=== PATIENT | female | born 1965 | race African-American/Black ===

== ENCOUNTER 2017-12-14 13:07 | Emergency (ER) | payer OTHER ==
[~2017-12-14] VITALS: Ht 149.9 cm; Wt 67.6 kg
[2017-12-14 14:47] LABS: HEMATOCRIT 32.2 % (36.0-46.0); MCH 27.5 PG (29.0-34.0); MCHC 31.1 G/DL (30.0-36.0); MCV 88.5 FL (83-99); PLATELET COUNT 152 K/uL (156-360); RBC DIS.WIDTH-CV 15.7 % (11.8-14.6); RBC DIS.WIDTH-SD 50.9 % (39-53); RED BLOOD COUNT 3.64 M/uL (3.80-5.20); WHITE BLOOD COUNT 3.4 K/uL (4.1-10.2)
[2017-12-14 14:58] LABS: ALBUMIN 3.9 g/dL (3.2-4.8); CHLORIDE 108 mEq/L (99-109); POTASSIUM 3.4 mEq/L (3.7-5.4); SODIUM 142 mEq/L (136-147)
[2017-12-14 15:01] LABS: GLUCOSE 73 mg/dL (70-99); TOTAL PROTEIN 6.4 g/dL (6.4-8.3)
[2017-12-14 15:03] LABS: TOTAL BILIRUBIN 0.4 mg/dL (0.0-1.0)
[2017-12-14 15:04] LABS: ALKALINE PHOSPHATASE 77 IU/L (3-129); CREATININE 0.8 mg/dL (0.6-1.3)
[2017-12-14 15:05] LABS: UREA NITROGEN (BUN) 8 mg/dL (9-23)
[2017-12-14 15:06] LABS: AST (GOT) 15 IU/L (2-34)
[2017-12-14 15:07] LABS: ALT (GPT) 13 IU/L (3-49)
[2017-12-14 15:08] LABS: LIPASE 8 U/L (1.0-51.0)
[2017-12-14 15:11] LABS: GFR ESTIMATE (CALCULATED) > 59 mL/min/
[2017-12-14 15:36] LABS: ABS NEUTROPHIL COUNT 0.7; ANISOCYTOSIS 1+; EOSINOPHIL ABS CT 0; EOSINOPHILS 0.9 % (0-5.0); HYPOCHROMASIA 1+; LYMPHOCYTES 45.8 % (15.0-45.0); MACROCYTES 1+; MICROCYTOSIS 1+; MONOCYTES 4.7 % (0-9.0); SEG.NEUTROPHILS 19.6 % (46.0-76.0); SMUDGE CELLS 20.6
[2017-12-14 16:30] LABS: APPEARANCE CLEAR ((CLEAR)); BILIRUBIN NEGATIVE; BLOOD NEGATIVE; COLOR YELLOW ((YELLOW)); GLUCOSE (STRIP) NEGATIVE; KETONES NEGATIVE; LEUKOCYTES NEGATIVE; NITRITE NEGATIVE; PROTEIN (STRIP) NEGATIVE; SPECIFIC GRAVITY 1.019 (1.000-1.030); UCUL ADDED? NO
[2017-12-14 18:33] VITALS: BP 147/75
== END 2017-12-14 18:33 | disposition home or self-care (01) ==
LOC: EME 13:07
PROVIDERS: Emergency Medicine
DX: R10.9 Unspecified abdominal pain (principal); R11.2 Nausea with vomiting, unspecified; Z98.84 Bariatric surgery status; Z86.73 Personal history of transient ischemic attack (TIA), and cerebral infarction without residual deficits; J45.909 Unspecified asthma, uncomplicated; I10 Essential (primary) hypertension; Z90.710 Acquired absence of both cervix and uterus; M79.7 Fibromyalgia; Z88.5 Allergy status to narcotic agent; Z88.0 Allergy status to penicillin; Z88.6 Allergy status to analgesic agent
CPT/HCPCS: 74177; 80053; 81003; 83605; 83690; 85025; 93005; 99281; 99284; J0500; J2405; J7030

== ENCOUNTER 2018-01-23 08:47 | Emergency (ER) | payer OTHER ==
[~2018-01-23] VITALS: Ht 149.9 cm; Wt 68.9 kg
[2018-01-23 09:54] LABS: SOURCE SWAB
[2018-01-23 09:59] LABS: APPEARANCE CLEAR ((CLEAR)); BILIRUBIN NEGATIVE; BLOOD NEGATIVE; COLOR YELLOW ((YELLOW)); GLUCOSE (STRIP) NEGATIVE; KETONES NEGATIVE; LEUKOCYTES NEGATIVE; NITRITE NEGATIVE; PROTEIN (STRIP) NEGATIVE; SPECIFIC GRAVITY 1.023 (1.000-1.030); UCUL ADDED? NO; UROBILINOGEN 0.2 MG/DL (0.2-1.0)
[2018-01-23 10:03] LABS: BASOPHIL (%) 0.3 % (0-1); EOSINOPHIL (%) 0.9 % (0-5); HEMATOCRIT 37.3 % (36.0-46.0); HEMOGLOBIN 11.6 G/DL (11.9-15.5); LYMPHOCYTE (%) 54.2 % (15-42); LYMPHOCYTE COUNT 1.8 K/uL (1.0-2.8); MCH 27.8 PG (29.0-34.0); MCHC 31.1 G/DL (30.0-36.0); MCV 89.2 FL (83-99); MONOCYTE (%) 6.9 % (3-12); MONOCYTE COUNT 0.2 K/uL (0-0.8); NEUTROPHIL (%) 37.7 % (45-76); NEUTROPHIL COUNT 1.3 K/uL (1.8-6.4); PLATELET COUNT 138 K/uL (156-360); RBC DIS.WIDTH-CV 15.3 % (11.8-14.6); RED BLOOD COUNT 4.18 M/uL (3.80-5.20); WHITE BLOOD COUNT 3.3 K/uL (4.1-10.2)
[2018-01-23 10:13] LABS: ALBUMIN 4.4 g/dL (3.2-4.8); CHLORIDE 109 mEq/L (99-109); POTASSIUM 3.4 mEq/L (3.7-5.4); SODIUM 144 mEq/L (136-147)
[2018-01-23 10:16] LABS: GLUCOSE 62 mg/dL (70-99); TOTAL PROTEIN 7.4 g/dL (6.4-8.3)
[2018-01-23 10:18] LABS: TOTAL BILIRUBIN 0.5 mg/dL (0.0-1.0)
[2018-01-23 10:19] LABS: ALKALINE PHOSPHATASE 105 IU/L (3-129); SERUM ETHYL ALCOHOL < 10 mg/dL
[2018-01-23 10:20] LABS: CREATININE 0.8 mg/dL (0.6-1.3); GFR ESTIMATE (CALCULATED) > 59 mL/min/
[2018-01-23 10:21] LABS: AST (GOT) 18 IU/L (2-34); UREA NITROGEN (BUN) 14 mg/dL (9-23)
[2018-01-23 10:22] LABS: ALT (GPT) 20 IU/L (3-49)
[2018-01-23] MEDS ORDERED: ZOFRAN4 MG PO (13:12)
[2018-01-23 13:26] VITALS: BP 161/95
[2018-01-23 13:34] LABS: AMPHETAMINE NEGATIVE (500 ng/mL); BARBITURATES NEGATIVE (200 ng/mL); BENZODIAZEPINES NEGATIVE (150 ng/mL); BUPRENORPHINE NEGATIVE (10 ng/mL); COCAINE NEGATIVE (150 ng/mL); METHADONE NEGATIVE (200 ng/mL); METHAMPHETAMINE NEGATIVE (500 ng/mL); OPIATES (MORPHINE) NEGATIVE (100 ng/mL); OXYCODONE NEGATIVE (100 ng/mL); PHENCYCLIDINE NEGATIVE (25 ng/mL); PROPOXYPHENE NEGATIVE (300 ng/mL); THC CANNABINOIDS NEGATIVE (50 ng/mL); TRICYCLIC ANTIDEPRESSANTS NEGATIVE (300 ng/mL)
[2018-01-23 13:59] LABS: TREPONEMA ANTIBODY POSITIVE (NEGATIVE)
[2018-01-24 18:13] LABS: RPR SCREEN Nonreactive (Nonreactive)
[2018-01-24 19:49] LABS: TREPONEMA PALLIDUM PART AGGL Nonreactive (Nonreactive)
== END 2018-01-23 13:32 | disposition home or self-care (01) ==
LOC: EME 08:47
PROVIDERS: Emergency Medicine
DX: T76.21XA Adult sexual abuse, suspected, initial encounter (principal); R10.30 Lower abdominal pain, unspecified; E16.2 Hypoglycemia, unspecified; Z11.3 Encounter for screening for infections with a predominantly sexual mode of transmission; Z90.710 Acquired absence of both cervix and uterus; Z98.84 Bariatric surgery status; Z86.73 Personal history of transient ischemic attack (TIA), and cerebral infarction without residual deficits
CPT/HCPCS: 80053; 81003; 82948; 85025; 86592 90; 86780; 86780 90; 87491; 87591; 99281; 99285; G0480; J0696

== ENCOUNTER 2018-04-06 09:10 | Emergency (ER) | payer OTHER ==
[~2018-04-06] VITALS: Ht 149.9 cm; Wt 66.5 kg
[~2018-04-06 09:10] MED LIST: ZOFRAN4 MG PO
[2018-04-06 11:54] LABS: HEMOGLOBIN 12.2 G/DL (11.9-15.5); MCHC 31.3 G/DL (30.0-36.0); MCV 89.4 FL (83-99); RBC DIS.WIDTH-CV 14.6 % (11.8-14.6); RBC DIS.WIDTH-SD 48.3 % (39-53); RED BLOOD COUNT 4.36 M/uL (3.80-5.20); WHITE BLOOD COUNT 4.6 K/uL (4.1-10.2)
[2018-04-06 12:45] LABS: PLAT.SUFFICIENCY DECREASED; PLATELET CLUMPS PRESENT - PLATELET COUNTS APPEARS DECREASED; PLATELET COUNT UNABLE TO REPORT K/uL (156-360)
[2018-04-06 12:59] LABS: CHLORIDE 109 mEq/L (99-109); POTASSIUM 3.7 mEq/L (3.7-5.4); SODIUM 145 mEq/L (136-147)
[2018-04-06 13:00] LABS: GLUCOSE 87 mg/dL (70-99)
[2018-04-06 13:04] LABS: CREATININE 0.7 mg/dL (0.6-1.3); GFR ESTIMATE (CALCULATED) > 59 mL/min/
[2018-04-06 13:05] LABS: UREA NITROGEN (BUN) 10 mg/dL (9-23)
[2018-04-06 13:14] LABS: QUANTITATIVE HCG 6.1 MIU/ML
[2018-04-06] MEDS ORDERED: NAPROSYN500 MG PO (14:49)
[2018-04-06] MEDS ORDERED: FLEXERIL10 MG PO (14:49)
[2018-04-06 15:08] VITALS: BP 138/76
== END 2018-04-06 15:09 | disposition home or self-care (01) ==
LOC: EME 09:10
PROVIDERS: Physician Assistant
DX: S43.402A Unspecified sprain of left shoulder joint, initial encounter (principal); S63.512A Sprain of carpal joint of left wrist, initial encounter; S60.212A Contusion of left wrist, initial encounter; S10.93XA Contusion of unspecified part of neck, initial encounter; E04.2 Nontoxic multinodular goiter; Y04.8XXA Assault by other bodily force, initial encounter; Z88.5 Allergy status to narcotic agent; Z88.0 Allergy status to penicillin
CPT/HCPCS: 70498; 71046; 73060; 73090; 73110; 80048; 84702; 85027; 99281; 99284

== ENCOUNTER 2018-04-24 11:49 | Observation (INO) | payer OTHER ==
[~2018-04-24] VITALS: Ht 149.9 cm; Wt 66.6 kg
[~2018-04-24 11:49] MED LIST changes: +FLEXERIL10 MG PO; +NAPROSYN500 MG PO
[2018-04-24 12:36] LABS: HEMATOCRIT 33.6 % (36.0-46.0); HEMOGLOBIN 10.7 G/DL (11.9-15.5); MCH 28.5 PG (29.0-34.0); MCHC 31.8 G/DL (30.0-36.0); MCV 89.4 FL (83-99); RBC DIS.WIDTH-CV 15.1 % (11.8-14.6); RBC DIS.WIDTH-SD 49.1 % (39-53); RED BLOOD COUNT 3.76 M/uL (3.80-5.20); WHITE BLOOD COUNT 2.9 K/uL (4.1-10.2)
[2018-04-24 13:07] LABS: TROP-I INTERPRETATION NEGATIVE; TROPONIN-I < 0.01 ng/mL (0.0-0.30)
[2018-04-24 13:10] LABS: CHLORIDE 111 MEQ/L (99-109); CREATININE 0.8 MG/DL (0.6-1.3); GFR ESTIMATE (CALCULATED) > 59 mL/min/; GLUCOSE 78 mg/dL (70-99); POTASSIUM 4.2 MEQ/L (3.7-5.4); SODIUM 144 MEQ/L (136-147); UREA NITROGEN (BUN) 14 mg/dL (9-23)
[2018-04-24 14:09] LABS: PLATELET COUNT 200 K/uL (156-360)
[2018-04-24] MEDS ORDERED: FLEXERIL10 MG PO (15:43)
[2018-04-24] MEDS ORDERED: ZOFRAN4 MG PO (15:44)
[2018-04-24] MEDS ORDERED: RELAFEN500 M1 PO (15:45)
[2018-04-24] MEDS ORDERED: LOPRESSOR50 MG PO (15:45)
[2018-04-24] MEDS ORDERED: CYANOCOBAL1000 MCG/2 IM (15:45)
[2018-04-24] MEDS ORDERED: ZOLPIDEM TART12.5 MG PO (15:46)
[2018-04-24] MEDS ORDERED: LYRICA100 MG PO (15:46)
[2018-04-24] MEDS ORDERED: VENTOLIN HFA18 GM IH (15:46)
[2018-04-24] MEDS ORDERED: TIZANIDINE HCL4 MG PO (15:47)
[2018-04-24] MEDS ORDERED: CLONIDINE HCL0.1 MG PO (15:48)
[2018-04-24] MEDS ORDERED: CREON DR 12,001 EAC1 PO (15:48)
[2018-04-24] MEDS ORDERED: PANTOPRAZOLE SO40 MG PO (15:48)
[2018-04-24] MEDS ORDERED: BENADRYL25 MG PO (15:49)
[2018-04-24] MEDS ORDERED: XARELTO20 MG PO (15:49)
[2018-04-24] MEDS ORDERED: GAS RELIEF 8080 MG PO (15:50)
[2018-04-24 16:09] LABS: HEMATOCRIT 33.5 % (36.0-46.0); HEMOGLOBIN 10.5 G/DL (11.9-15.5); MCH 27.8 PG (29.0-34.0); MCHC 31.3 G/DL (30.0-36.0); MCV 88.6 FL (83-99); PLATELET COUNT 190 K/uL (156-360); RBC DIS.WIDTH-SD 48.6 % (39-53); RED BLOOD COUNT 3.78 M/uL (3.80-5.20); WHITE BLOOD COUNT 4.4 K/uL (4.1-10.2)
[2018-04-24 16:22] LABS: D-DIMER ELISA < 150.00 ng/mLDDU (<230)
[2018-04-24 16:28] LABS: TROP-I INTERPRETATION NEGATIVE; TROPONIN-I 0.02 ng/mL (0.0-0.30)
[2018-04-24 16:32] VITALS: BP 165/85
[2018-04-24 16:57] LABS: FOLIC ACID (FOLATE) 5.3 NG/ML (5.0-22.0)
[2018-04-24 19:11] LABS: TROP-I INTERPRETATION NEGATIVE; TROPONIN-I < 0.01 ng/mL (0.0-0.30)
[2018-04-24 20:00] VITALS: BP 142/85
[2018-04-25] VITALS: BP 112/67
[2018-04-25 01:14] LABS: TROP-I INTERPRETATION NEGATIVE; TROPONIN-I 0.01 ng/mL (0.0-0.30)
[2018-04-25 04:00] VITALS: BP 126/77
[2018-04-25 05:34] LABS: HEMOGLOBIN 9.7 G/DL (11.9-15.5); MCH 27.9 PG (29.0-34.0); MCHC 31.3 G/DL (30.0-36.0); MCV 89.1 FL (83-99); PLATELET COUNT 148 K/uL (156-360); RBC DIS.WIDTH-CV 15.1 % (11.8-14.6); RBC DIS.WIDTH-SD 49.3 % (39-53); RED BLOOD COUNT 3.48 M/uL (3.80-5.20); WHITE BLOOD COUNT 3.2 K/uL (4.1-10.2)
[2018-04-25 06:04] LABS: CHLORIDE 109 MEQ/L (99-109); CREATININE 0.6 MG/DL (0.6-1.3); GFR ESTIMATE (CALCULATED) > 59 mL/min/; GLUCOSE 70 mg/dL (70-99); POTASSIUM 3.5 MEQ/L (3.7-5.4); SODIUM 142 MEQ/L (136-147); UREA NITROGEN (BUN) 13 mg/dL (9-23)
[2018-04-25 08:40] VITALS: BP 134/76
[2018-04-25 09:56] LABS: ABS NEUTROPHIL COUNT 1.5; ANISOCYTOSIS 1+; ATYPICAL LYMPHOCYTE 0.9 %; EOSINOPHIL ABS CT 0.1; EOSINOPHILS 1.8 % (0-5.0); LYMPHOCYTES 56.8 % (15.0-45.0); MONOCYTES 5.4 % (0-9.0); OVALOCYTES 1+; PLAT.SUFFICIENCY ADEQUATE; SEG.NEUTROPHILS 35.1 % (46.0-76.0)
[2018-04-25] MEDS ORDERED: K-DUR20 MEQ PO (10:58)
[2018-04-25] MEDS ORDERED: ZOLPIDEM TARTRAT5 MG PO (10:58)
[2018-04-25] MEDS ORDERED: TRAMADOL HCL50 MG PO (10:58)
[2018-04-25 11:28] VITALS: BP 132/89
[2018-04-25] MEDS ORDERED: XARELTO20 MG PO (14:05)
== END 2018-04-25 14:19 | disposition home or self-care (01) ==
LOC: EME 11:49 → EDOF 14:58 → ENRESERV 15:06 → 4SOUTH 16:25 → ENPENDDIS 04-25 → 4SOUTH 04-25 14:19
PROVIDERS: Physician Assistant; Physician Assistant Medical
DX: R07.2 Precordial pain (principal); M79.7 Fibromyalgia; D61.818 Other pancytopenia; I10 Essential (primary) hypertension; J45.909 Unspecified asthma, uncomplicated; E56.9 Vitamin deficiency, unspecified; Z98.84 Bariatric surgery status; Z86.711 Personal history of pulmonary embolism; Z86.718 Personal history of other venous thrombosis and embolism; Z91.14 Patient's other noncompliance with medication regimen; Z88.0 Allergy status to penicillin; E66.01 Morbid (severe) obesity due to excess calories; Z68.29 Body mass index [BMI] 29.0-29.9, adult
CPT/HCPCS: 71046; 80048; 82607; 82746; 84484; 85007; 85025; 85027; 85060; 85379; 86038; 86147 90; 93005; 99281; 99284; G0378

== ENCOUNTER 2018-05-06 13:38 | Inpatient (IN) | payer OTHER ==
[~2018-05-06] VITALS: Ht 149.9 cm; Wt 63.1 kg
[~2018-05-06 13:38] MED LIST changes: +BENADRYL25 MG PO; +CLONIDINE HCL0.1 MG PO; +CREON DR 12,001 EAC1 PO; +CYANOCOBAL1000 MCG/2 IM; +GAS RELIEF 8080 MG PO; +K-DUR20 MEQ PO; +LOPRESSOR50 MG PO; +LYRICA100 MG PO; +PANTOPRAZOLE SO40 MG PO; +RELAFEN500 M1 PO; +TIZANIDINE HCL4 MG PO; +TRAMADOL HCL50 MG PO; +VENTOLIN HFA18 GM IH; +XARELTO20 MG PO; +ZOLPIDEM TART12.5 MG PO; +ZOLPIDEM TARTRAT5 MG PO
[2018-05-06 14:56] LABS: BASOPHIL (%) 0.3 % (0-1); EOSINOPHIL (%) 1.2 % (0-5); HEMATOCRIT 32.4 % (36.0-46.0); HEMOGLOBIN 10.1 G/DL (11.9-15.5); IMMATURE GRANULOCYTE (%) 0.3 % (0.0-0.7); LYMPHOCYTE (%) 51.9 % (15-42); LYMPHOCYTE COUNT 1.8 K/uL (1.0-2.8); MCH 28.1 PG (29.0-34.0); MCHC 31.2 G/DL (30.0-36.0); MONOCYTE (%) 6.7 % (3-12); MONOCYTE COUNT 0.2 K/uL (0-0.8); NEUTROPHIL (%) 39.6 % (45-76); NEUTROPHIL COUNT 1.4 K/uL (1.8-6.4); PLATELET COUNT 142 K/uL (156-360); RBC DIS.WIDTH-CV 14.9 % (11.8-14.6); RBC DIS.WIDTH-SD 49.6 % (39-53); WHITE BLOOD COUNT 3.5 K/uL (4.1-10.2)
[2018-05-06 15:04] LABS: ALBUMIN 3.9 g/dL (3.2-4.8)
[2018-05-06 15:05] LABS: CHLORIDE 110 mEq/L (99-109); SODIUM 143 mEq/L (136-147)
[2018-05-06 15:07] LABS: GLUCOSE 88 mg/dL (70-99); TOTAL PROTEIN 6.6 g/dL (6.4-8.3)
[2018-05-06 15:09] LABS: TOTAL BILIRUBIN 0.4 mg/dL (0.0-1.0)
[2018-05-06 15:10] LABS: ALKALINE PHOSPHATASE 93 IU/L (3-129)
[2018-05-06 15:11] LABS: CREATININE 0.8 mg/dL (0.6-1.3); GFR ESTIMATE (CALCULATED) > 59 mL/min/
[2018-05-06 15:12] LABS: AST (GOT) 16 IU/L (2-34); ERTH.SED.RATE 26 MM/HR (0-30); UREA NITROGEN (BUN) 12 mg/dL (9-23)
[2018-05-06 15:14] LABS: ALT (GPT) 14 IU/L (3-49)
[2018-05-06 15:16] LABS: TROP-I INTERPRETATION NEGATIVE; TROPONIN-I < 0.01 ng/mL (0.0-0.30)
[2018-05-06] MEDS ORDERED: K-DUR20 MEQ PO (19:31)
[2018-05-06] MEDS ORDERED: RELAFEN500 M1 PO (19:32)
[2018-05-06] MEDS ORDERED: AMBIEN5 MG PO (19:32)
[2018-05-06] MEDS ORDERED: CLARITIN,ALAVAR10 MG PO (19:33)
[2018-05-06 21:36] VITALS: BP 115/71
[2018-05-06 23:46] VITALS: BP 111/71
[2018-05-07 04:08] VITALS: BP 118/76
[2018-05-07 06:59] LABS: BASOPHIL (%) 0.3 % (0-1); EOSINOPHIL (%) 1.6 % (0-5); EOSINOPHIL COUNT 0.1 K/uL (0-0.3); HEMATOCRIT 30.6 % (36.0-46.0); HEMOGLOBIN 9.2 G/DL (11.9-15.5); LYMPHOCYTE (%) 69.3 % (15-42); LYMPHOCYTE COUNT 2.1 K/uL (1.0-2.8); MCH 27.3 PG (29.0-34.0); MCHC 30.1 G/DL (30.0-36.0); MCV 90.8 FL (83-99); MONOCYTE COUNT 0.3 K/uL (0-0.8); NEUTROPHIL (%) 17.8 % (45-76); NEUTROPHIL COUNT 0.6 K/uL (1.8-6.4); PLATELET COUNT 141 K/uL (156-360); RBC DIS.WIDTH-CV 14.9 % (11.8-14.6); RBC DIS.WIDTH-SD 49.8 % (39-53); RED BLOOD COUNT 3.37 M/uL (3.80-5.20); WHITE BLOOD COUNT 3.1 K/uL (4.1-10.2)
[2018-05-07 07:26] LABS: ALBUMIN 3.1 G/DL (3.2-4.8); ALKALINE PHOSPHATASE 68 IU/L (3-129); ALT (GPT) 9 IU/L (3-49); AST (GOT) 11 IU/L (2-34); CHLORIDE 109 MEQ/L (99-109); CREATININE 0.6 MG/DL (0.6-1.3); DIRECT BILIRUBIN 0.1 mg/dL (0.0-0.3); GFR ESTIMATE (CALCULATED) > 59 mL/min/; GLUCOSE 87 mg/dL (70-99); POTASSIUM 3.7 MEQ/L (3.7-5.4); SODIUM 139 MEQ/L (136-147); TOTAL BILIRUBIN 0.4 MG/DL (0.0-1.0); TOTAL PROTEIN 5.6 G/DL (6.4-8.3); UREA NITROGEN (BUN) 14 mg/dL (9-23)
[2018-05-07 08:00] VITALS: BP 112/68
[2018-05-07 09:40] LABS: IRON 106 MCG/DL (35-150); TRANSFERRIN (TIBC) 169.4 mg/dL (215-380); TRANSFERRIN SATUR. 63 % (20-55)
[2018-05-07 09:53] LABS: THYROTROPIN (TSH) 1.9 MIU/L (0.4-5.5)
[2018-05-07 11:39] VITALS: BP 105/64
[2018-05-07 11:50] LABS: FOLIC ACID (FOLATE) 8.4 NG/ML (5.0-22.0)
[2018-05-07 15:32] VITALS: BP 130/70
[2018-05-07 19:39] VITALS: BP 112/70
[2018-05-07 23:40] VITALS: BP 143/81
[2018-05-08 03:57] VITALS: BP 98/57
[2018-05-08 07:32] LABS: HEMATOCRIT 33.4 % (36.0-46.0); HEMOGLOBIN 9.9 G/DL (11.9-15.5); MCH 27.3 PG (29.0-34.0); MCHC 29.6 G/DL (30.0-36.0); MCV 92.3 FL (83-99); PLATELET COUNT 152 K/uL (156-360); RBC DIS.WIDTH-CV 14.9 % (11.8-14.6); RBC DIS.WIDTH-SD 50.7 % (39-53); RED BLOOD COUNT 3.62 M/uL (3.80-5.20); WHITE BLOOD COUNT 3.7 K/uL (4.1-10.2)
[2018-05-08 07:52] LABS: CHLORIDE 107 MEQ/L (99-109); CREATININE 0.7 MG/DL (0.6-1.3); GFR ESTIMATE (CALCULATED) > 59 mL/min/; GLUCOSE 87 mg/dL (70-99); SODIUM 139 MEQ/L (136-147); UREA NITROGEN (BUN) 14 mg/dL (9-23)
[2018-05-08 07:53] LABS: POTASSIUM 4.7 MEQ/L (3.7-5.4)
[2018-05-08 08:41] VITALS: BP 104/61
[2018-05-08 12:01] VITALS: BP 102/58
[2018-05-08 16:10] VITALS: BP 115/59
[2018-05-08 20:10] VITALS: BP 113/59
[2018-05-09 00:12] VITALS: BP 89/55
[2018-05-09 04:00] VITALS: BP 108/58
[2018-05-09 07:47] VITALS: BP 120/56
[2018-05-09 11:56] VITALS: BP 108/62
[2018-05-09] MEDS ORDERED: GUAIFENESI100 MG/5 M PO (12:39)
[2018-05-09] MEDS ORDERED: XARELTO20 MG PO (12:39)
[2018-05-09] MEDS ORDERED: BENZONATATE100 MG PO (12:39)
[2018-05-09] MEDS ORDERED: VITAMIN B-122000 MC1 PO (12:39)
[2018-05-09] MEDS ORDERED: LEVAQUIN750 MG PO (12:39)
[2018-05-09] MEDS ORDERED: LOPRESSOR25 MG PO (12:50)
[2018-05-09 13:37] LABS: TROP-I INTERPRETATION NEGATIVE; TROPONIN-I < 0.01 ng/mL (0.0-0.30)
[2018-05-09] MEDS ORDERED: CREON DR 12,001 EAC1 PO (14:53)
== END 2018-05-09 14:30 | disposition home or self-care (01) | DRG 194 ==
LOC: EME 13:38 → 2EASTP 19:44 → EDOF 19:44 → ENRESERV 19:44 → 2EASTP 21:24
PROVIDERS: Emergency Medicine; Hospitalist
DX: J18.9 Pneumonia, unspecified organism (principal); D61.818 Other pancytopenia; K91.2 Postsurgical malabsorption, not elsewhere classified; F33.9 Major depressive disorder, recurrent, unspecified; I10 Essential (primary) hypertension; E66.9 Obesity, unspecified; E53.8 Deficiency of other specified B group vitamins; F12.90 Cannabis use, unspecified, uncomplicated; J45.909 Unspecified asthma, uncomplicated; K21.9 Gastro-esophageal reflux disease without esophagitis; M79.7 Fibromyalgia; Z86.711 Personal history of pulmonary embolism; Z86.718 Personal history of other venous thrombosis and embolism; Z79.01 Long term (current) use of anticoagulants; Z90.710 Acquired absence of both cervix and uterus; Z91.14 Patient's other noncompliance with medication regimen; Z91.19 Patient's noncompliance with other medical treatment and regimen; Z98.84 Bariatric surgery status; Z88.5 Allergy status to narcotic agent; Z88.0 Allergy status to penicillin; Z68.28 Body mass index [BMI] 28.0-28.9, adult; Z79.51 Long term (current) use of inhaled steroids; Z90.49 Acquired absence of other specified parts of digestive tract; Z82.49 Family history of ischemic heart disease and other diseases of the circulatory system
CPT/HCPCS: 71275; 80048; 80053; 80076; 82607; 82746; 83540; 83605; 84443; 84466; 84484; 85025; 85027; 85610; 85651; 85730; 87040; 87070; 87205; 87449; 93005; 94640; 94640 76; 94667; 94668; 99202; 99281; 99285; J1956; J3420; J7040

== ENCOUNTER 2018-05-25 18:28 | Emergency (ER) | payer OTHER ==
[~2018-05-25] VITALS: Ht 149.9 cm; Wt 68.2 kg
[~2018-05-25 18:28] MED LIST changes: +AMBIEN5 MG PO; +BENZONATATE100 MG PO; +CLARITIN,ALAVAR10 MG PO; +GUAIFENESI100 MG/5 M PO; +LEVAQUIN750 MG PO; +LOPRESSOR25 MG PO; +VITAMIN B-122000 MC1 PO
[2018-05-25 20:10] LABS: HEMOGLOBIN 9.4 G/DL (11.9-15.5); MCH 28.1 PG (29.0-34.0); MCHC 31.3 G/DL (30.0-36.0); MCV 89.8 FL (83-99); RBC DIS.WIDTH-CV 14.6 % (11.8-14.6); RBC DIS.WIDTH-SD 47.9 % (39-53); RED BLOOD COUNT 3.34 M/uL (3.80-5.20)
[2018-05-25 20:19] LABS: CHLORIDE 107 mEq/L (99-109); POTASSIUM 3.9 mEq/L (3.7-5.4); SODIUM 141 mEq/L (136-147)
[2018-05-25 20:21] LABS: GLUCOSE 99 mg/dL (70-99)
[2018-05-25 20:25] LABS: CREATININE 0.8 mg/dL (0.6-1.3); GFR ESTIMATE (CALCULATED) > 59 mL/min/
[2018-05-25 20:26] LABS: UREA NITROGEN (BUN) 12 mg/dL (9-23)
[2018-05-25 20:33] LABS: QUANTITATIVE HCG < 4.0 MIU/ML
[2018-05-25 21:10] LABS: PLAT.SUFFICIENCY ADEQUATE; PLATELET COUNT 180 K/uL (156-360)
[2018-05-25 21:30] LABS: ERTH.SED.RATE 19 MM/HR (0-30)
[2018-05-26] MEDS ORDERED: FLEXERIL10 MG PO (01:14)
[2018-05-26 01:20] VITALS: BP 139/80
== END 2018-05-26 01:25 | disposition home or self-care (01) ==
LOC: EME 18:28 → RME 18:28
PROVIDERS: Physician Assistant Medical
DX: R51 Headache (principal); M54.2 Cervicalgia; G89.29 Other chronic pain; M79.7 Fibromyalgia; I10 Essential (primary) hypertension; K21.9 Gastro-esophageal reflux disease without esophagitis; J45.909 Unspecified asthma, uncomplicated; F32.9 Major depressive disorder, single episode, unspecified; Z79.51 Long term (current) use of inhaled steroids; Z86.73 Personal history of transient ischemic attack (TIA), and cerebral infarction without residual deficits; Z90.49 Acquired absence of other specified parts of digestive tract; Z98.84 Bariatric surgery status; Z88.5 Allergy status to narcotic agent; Z88.0 Allergy status to penicillin; Z88.6 Allergy status to analgesic agent
CPT/HCPCS: 70450; 72125; 80048; 84702; 85027; 85651; 99281; 99284; J1885

== ENCOUNTER 2018-05-29 10:46 | Emergency (ER) | payer OTHER ==
[~2018-05-29] VITALS: Ht 149.9 cm; Wt 68.2 kg
[2018-05-29] MEDS ORDERED: ULTRAM50 MG PO (15:01)
[2018-05-29] MEDS ORDERED: ATIVAN0.5 MG PO (15:01)
[2018-05-29 15:12] VITALS: BP 162/99
== END 2018-05-29 15:13 | disposition home or self-care (01) ==
LOC: EME 10:46
DX: M25.512 Pain in left shoulder (principal); M26.629 Arthralgia of temporomandibular joint, unspecified side; M79.7 Fibromyalgia; M54.2 Cervicalgia; M75.82 Other shoulder lesions, left shoulder; J45.909 Unspecified asthma, uncomplicated; I10 Essential (primary) hypertension; Z90.49 Acquired absence of other specified parts of digestive tract; Z86.73 Personal history of transient ischemic attack (TIA), and cerebral infarction without residual deficits; Z79.01 Long term (current) use of anticoagulants
CPT/HCPCS: 73030; 99281; 99284; J2060; J3010; J7050

== ENCOUNTER 2018-06-02 14:55 | Emergency (ER) | payer OTHER ==
[~2018-06-02] VITALS: Ht 152.4 cm; Wt 66.1 kg
[~2018-06-02 14:55] MED LIST changes: +ATIVAN0.5 MG PO; +ULTRAM50 MG PO
[2018-06-02 17:57] LABS: HEMATOCRIT 31.8 % (36.0-46.0); HEMOGLOBIN 9.7 G/DL (11.9-15.5); MCHC 30.5 G/DL (30.0-36.0); MCV 91.9 FL (83-99); PLATELET COUNT 164 K/uL (156-360); RBC DIS.WIDTH-CV 14.8 % (11.8-14.6); RBC DIS.WIDTH-SD 49.8 % (39-53); RED BLOOD COUNT 3.46 M/uL (3.80-5.20)
[2018-06-02 18:07] LABS: CHLORIDE 111 mEq/L (99-109); POTASSIUM 3.8 mEq/L (3.7-5.4); SODIUM 144 mEq/L (136-147)
[2018-06-02 18:08] LABS: PTT 27.6 SEC (25-37)
[2018-06-02 18:09] LABS: GLUCOSE 63 mg/dL (70-99)
[2018-06-02 18:13] LABS: CREATININE 0.8 mg/dL (0.6-1.3); GFR ESTIMATE (CALCULATED) > 59 mL/min/; UREA NITROGEN (BUN) 12 mg/dL (9-23)
[2018-06-02 19:01] LABS: ABS NEUTROPHIL COUNT 1.2; ANISOCYTOSIS 1+; ATYPICAL LYMPHOCYTE 2.6 %; BAND NEUTROPHILS 9.6 % (0-8.0); EOSINOPHIL ABS CT 0; MACROCYTES 1+; MONOCYTES 5.2 % (0-9.0); OVALOCYTES 1+; PLAT.SUFFICIENCY ADEQUATE; SEG.NEUTROPHILS 29.6 % (46.0-76.0)
[2018-06-02] MEDS ORDERED: VALIUM5 MG PO (21:04)
[2018-06-02 21:15] VITALS: BP 123/92
== END 2018-06-02 21:23 | disposition home or self-care (01) ==
LOC: EME 14:55 → EXP 14:55
PROVIDERS: Physician Assistant
DX: R51 Headache (principal); I10 Essential (primary) hypertension; K21.9 Gastro-esophageal reflux disease without esophagitis; M79.7 Fibromyalgia; J45.909 Unspecified asthma, uncomplicated; F32.9 Major depressive disorder, single episode, unspecified; Z87.19 Personal history of other diseases of the digestive system; Z86.73 Personal history of transient ischemic attack (TIA), and cerebral infarction without residual deficits; Z90.49 Acquired absence of other specified parts of digestive tract; Z88.5 Allergy status to narcotic agent; Z88.6 Allergy status to analgesic agent; Z88.0 Allergy status to penicillin
CPT/HCPCS: 80048; 85025; 85610; 85730; 99281; 99285; J1885

== ENCOUNTER 2018-06-09 13:47 | Emergency (ER) | payer OTHER ==
[~2018-06-09] VITALS: Ht 149.9 cm; Wt 66.0 kg
[~2018-06-09 13:47] MED LIST changes: +VALIUM5 MG PO
[2018-06-09 14:27] LABS: HEMATOCRIT 33.7 % (36.0-46.0); HEMOGLOBIN 10.4 G/DL (11.9-15.5); MCH 28.2 PG (29.0-34.0); MCHC 30.9 G/DL (30.0-36.0); MCV 91.3 FL (83-99); PLATELET COUNT 173 K/uL (156-360); RBC DIS.WIDTH-CV 14.5 % (11.8-14.6); RBC DIS.WIDTH-SD 48.5 % (39-53); RED BLOOD COUNT 3.69 M/uL (3.80-5.20)
[2018-06-09 14:37] LABS: ALBUMIN 4.1 g/dL (3.2-4.8)
[2018-06-09 14:38] LABS: CHLORIDE 110 mEq/L (99-109); SODIUM 144 mEq/L (136-147)
[2018-06-09 14:40] LABS: GLUCOSE 74 mg/dL (70-99); TOTAL PROTEIN 7.2 g/dL (6.4-8.3)
[2018-06-09 14:42] LABS: TOTAL BILIRUBIN 0.4 mg/dL (0.0-1.0)
[2018-06-09 14:43] LABS: ALKALINE PHOSPHATASE 98 IU/L (3-129)
[2018-06-09 14:44] LABS: CREATININE 0.7 mg/dL (0.6-1.3); GFR ESTIMATE (CALCULATED) > 59 mL/min/
[2018-06-09 14:45] LABS: AST (GOT) 27 IU/L (2-34); UREA NITROGEN (BUN) 9 mg/dL (9-23)
[2018-06-09 14:46] LABS: ALT (GPT) 26 IU/L (3-49)
[2018-06-09 14:53] LABS: QUANTITATIVE HCG < 4.0 MIU/ML
[2018-06-09 18:36] LABS: APPEARANCE CLEAR ((CLEAR)); BILIRUBIN NEGATIVE; BLOOD NEGATIVE; COLOR STRAW ((YELLOW)); GLUCOSE (STRIP) NEGATIVE; KETONES NEGATIVE; LEUKOCYTES NEGATIVE; NITRITE NEGATIVE; PROTEIN (STRIP) NEGATIVE; SPECIFIC GRAVITY 1.012 (1.000-1.030); UCUL ADDED? NO; UROBILINOGEN 0.2 MG/DL (0.2-1.0)
[2018-06-09 19:00] LABS: C DIFF TOXIN NEGATIVE (NEGATIVE)
[2018-06-09 20:09] VITALS: BP 139/96
== END 2018-06-09 20:14 | disposition home or self-care (01) ==
LOC: EME 13:47
PROVIDERS: Physician Assistant
DX: R10.13 Epigastric pain (principal); Z98.84 Bariatric surgery status; J45.909 Unspecified asthma, uncomplicated; F32.9 Major depressive disorder, single episode, unspecified; M79.7 Fibromyalgia; I10 Essential (primary) hypertension; K21.9 Gastro-esophageal reflux disease without esophagitis; Z86.73 Personal history of transient ischemic attack (TIA), and cerebral infarction without residual deficits; Z88.5 Allergy status to narcotic agent; Z88.0 Allergy status to penicillin
CPT/HCPCS: 74177; 80053; 81003; 84702; 85027; 87493; 87506; 99281; 99284; J2405; J3010; J7030